=== PATIENT | male | born 2000 | race Caucasian/White ===

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

== ENCOUNTER 2019-02-10 15:33 | Emergency (ER) | payer OTHER ==
[~2019-02-10] VITALS: Ht 160 cm; Wt 47.6 kg
[2019-02-10 16:39] LABS: BASOPHILS ABSOLUTE AUTO 0.07 K/mm3 (0.00-0.23); BASOPHILS PERCENT AUTO 2 % (0-2); EOSINOPHILS PERCENT AUTO 11 % (0-6); Hematocrit 46.7 % (37.0-53.0); Hemoglobin 14.2 g/dL (13.5-17.5); IMMATURE GRAN ABSOLUTE AUTO 0.01 K/mm3 (0.00-0.10); IMMATURE GRAN PERCENT AUTO 0 % (0-1); LYMPHOCYTES ABSOLUTE AUTO 1.73 K/mm3 (0.84-5.20); LYMPHOCYTES PERCENT AUTO 37 % (21-46); MONOCYTES ABSOLUTE AUTO 0.19 K/mm3 (0.16-1.47); MONOCYTES PERCENT AUTO 4 % (4-13); Mean Corpuscular HGB 24.7 pg (26.0-34.0); Mean Corpuscular HGB Conc 30.4 g/dL (31.5-36.5); Mean Corpuscular Volume 81 fL (80-100); Mean Platelet Volume 10.5 fL (9.1-12.4); NEUTROPHILS PERCENT AUTO 47 % (41-73); Platelet Count 218 K/mm3 (150-400); RDW Coefficient Variation 13.9 % (11.7-14.2); RDW Standard Deviation 40.3 fL (35.1-46.3); Red Blood Cell Count 5.76 M/mm3 (4.30-5.90)
[2019-02-10 16:58] LABS: Source, Urine Clean Catch
[2019-02-10 17:09] LABS: Alanine Aminotransfer (ALT/SGP 30 U/L (12-78); Albumin, Blood 3.7 g/dL (3.4-5.0); Alk Phos 95 U/L (50-136); Anion Gap 6 mmol/L (6-16); Aspartate Aminotrans (AST/SGOT 17 U/L (12-37); Bilirubin, Total 0.4 mg/dL (0.1-1.0); Blood Urea Nitrogen 7 mg/dL (8-24); Bun/Creatinine Ratio 9.8 (12.0-20.0); CO2, Blood 27 mmol/L (21-32); Calcium, Blood 9.6 mg/dL (8.5-10.1); Chloride, Blood 108 mmol/L (98-108); Creatinine, Blood 0.72 mg/dL (0.60-1.20); Globulin, Blood 3.7 g/dL (2.2-4.0); Glomerular Filtration Rate >60 (60-); Glucose, Blood 82 mg/dL (70-99); Sodium, Blood 141 mmol/L (136-145); Total Protein, Blood 7.4 g/dL (6.4-8.2)
[2019-02-10 17:25] LABS: Bilirubin, Urine Neg (Neg); Blood, Urine Neg (Neg); Glucose Qualitative, Urine Neg (Neg); Ketones, Urine Neg (Neg); Leukocyte Esterase, Urine Neg (Neg); Nitrite, Urine Neg (Neg); Protein, Urine Neg (Neg); Specific Gravity, Urine 1.015 (1.003-1.022); Urobilinogen, Urine NORM (Normal)
[2019-02-10 17:48] LABS: Appearance, Urine Hazy (Clear); Color, Urine Yellow (P-Yellow)
[2019-02-10 17:49] LABS: Bacteria Rare /hpf; Red Blood Cells, Urine 0-2 /hpf (0-2); Squamous Epithelial Cells Few /hpf (Few); White Blood Cells, Urine 0-2 /hpf (0-5)
[2019-02-10 17:50] LABS: Amorphous Mod (0-Heavy)
[2019-02-10] MEDS ORDERED: ONDA4ODT MM (17:54)
[2019-02-10] MEDS ORDERED: Loperamide2 MG PO (17:55)
== END 2019-02-10 18:22 | disposition home or self-care (01) ==
LOC: ER 15:33
PROVIDERS: Physician Assistant
DX: K52.9 Noninfective gastroenteritis and colitis, unspecified (principal); J45.909 Unspecified asthma, uncomplicated; F32.9 Major depressive disorder, single episode, unspecified; K21.9 Gastro-esophageal reflux disease without esophagitis; F17.200 Nicotine dependence, unspecified, uncomplicated; Z88.2 Allergy status to sulfonamides; Z79.899 Other long term (current) drug therapy; Z79.52 Long term (current) use of systemic steroids; Z79.51 Long term (current) use of inhaled steroids
CPT/HCPCS: 36415; 80053; 81001; 83690; 85025; 96361; 96374; 99283-25; J2405; J7030

== ENCOUNTER 2019-05-04 16:02 | Emergency (ER) | payer OTHER ==
[~2019-05-04] VITALS: Ht 160 cm; Wt 49.9 kg
[~2019-05-04 16:02] MED LIST changes: +Loperamide2 MG PO
== END 2019-05-04 19:03 | disposition left against medical advice (07) ==
LOC: ER 16:02
DX: Z53.21 Procedure and treatment not carried out due to patient leaving prior to being seen by health care provider (principal)
CPT/HCPCS: 71046; 99283-25

== ENCOUNTER 2019-11-23 14:50 | Inpatient (IN) | payer OTHER ==
[~2019-11-23] VITALS: Ht 162.6 cm; Wt 43.9 kg
[~2019-11-23 14:50] MED LIST changes: -Loratadine10 MG PO; -OLAN5 PO; -OMEPRAZOLE MAGN20 MG PO; -SERT100 PO
[2019-11-23 16:00] LABS: BASOPHILS ABSOLUTE AUTO 0.02 K/mm3 (0.00-0.23); BASOPHILS PERCENT AUTO 0 % (0-2); EOSINOPHILS PERCENT AUTO 2 % (0-6); Hematocrit 45.7 % (37.0-53.0); Hemoglobin 14.6 g/dL (13.5-17.5); IMMATURE GRAN ABSOLUTE AUTO 0.01 K/mm3 (0.00-0.10); IMMATURE GRAN PERCENT AUTO 0 % (0-1); LYMPHOCYTES ABSOLUTE AUTO 1.33 K/mm3 (0.84-5.20); LYMPHOCYTES PERCENT AUTO 21 % (21-46); MONOCYTES ABSOLUTE AUTO 0.22 K/mm3 (0.16-1.47); MONOCYTES PERCENT AUTO 3 % (4-13); Mean Corpuscular HGB 25.9 pg (26.0-34.0); Mean Corpuscular HGB Conc 31.9 g/dL (31.5-36.5); Mean Corpuscular Volume 81 fL (80-100); NEUTROPHILS ABSOLUTE AUTO 4.82 K/mm3 (1.96-9.15); NEUTROPHILS PERCENT AUTO 74 % (41-73); RDW Coefficient Variation 13.7 % (11.7-14.2); RDW Standard Deviation 40.2 fL (35.1-46.3); Red Blood Cell Count 5.63 M/mm3 (4.30-5.90)
[2019-11-23 16:09] LABS: Mean Platelet Volume 11.4 fL (9.1-12.4); Platelet Count 100 K/mm3 (150-400)
[2019-11-23 16:21] LABS: Alanine Aminotransfer (ALT/SGP 20 U/L (12-78); Albumin, Blood 3.8 g/dL (3.4-5.0); Albumin/Globulin Ratio 1.1 (0.8-1.8); Alk Phos 75 U/L (50-136); Anion Gap 10 mmol/L (6-16); Aspartate Aminotrans (AST/SGOT 11 U/L (12-37); Bilirubin, Total 0.3 mg/dL (0.1-1.0); Blood Urea Nitrogen 5 mg/dL (8-24); Bun/Creatinine Ratio 8.3 (12.0-20.0); CO2, Blood 21 mmol/L (21-32); Chloride, Blood 105 mmol/L (98-108); Creatinine, Blood 0.61 mg/dL (0.60-1.20); Ethanol (Alcohol), Blood, Med <3 mg/dL; Free Thyroxine 1.49 ng/dL (0.70-1.60); Globulin, Blood 3.4 g/dL (2.2-4.0); Glomerular Filtration Rate >60 (60-); Glucose, Blood 109 mg/dL (70-99); Salicylate <1.7 mg/dL (2.8-20.0); Sodium, Blood 136 mmol/L (136-145); Thyroid Stimulating Hormone 0.439 uIU/mL (0.360-4.800); Total Protein, Blood 7.2 g/dL (6.4-8.2)
[2019-11-23 16:28] LABS: Calcium, Blood 9.1 mg/dL (8.5-10.1)
[2019-11-23 16:32] LABS: Acetaminophen, Random <2.0 ug/mL (10.0-30.0)
[2019-11-23 16:33] LABS: Source, Urine Catheter
[2019-11-23 16:39] LABS: Appearance, Urine Clear (Clear); Bilirubin, Urine Neg (Neg); Blood, Urine 1+ (Neg); Color, Urine Yellow (P-Yellow); Glucose Qualitative, Urine Neg (Neg); Ketones, Urine 1+ (Neg); Leukocyte Esterase, Urine Neg (Neg); Nitrite, Urine Neg (Neg); Protein, Urine Neg (Neg); Specific Gravity, Urine 1.025 (1.003-1.022); Urobilinogen, Urine NORM (Normal)
[2019-11-23 16:48] LABS: Bacteria Rare /hpf; Red Blood Cells, Urine 0-2 /hpf (0-2); Squamous Epithelial Cells Rare /hpf (Few); White Blood Cells, Urine 0-2 /hpf (0-5)
[2019-11-23 16:59] LABS: U Amphetamine Screen Not Detected; U Cannabinoids Screen DETECTED
[2019-11-23 17:00] LABS: U Barbituate Screen Not Detected; U Benzodiazapine Screen Not Detected; U Buprenorphine Screen Not Detected; U Cocaine Screen Not Detected; U Methadone Screen Not Detected; U Methamphetamine Screen Not Detected; U Opiates Screen Not Detected; U Oxycodone Screen Not Detected; U Phencyclidine Screen Not Detected; U Propoxyphene Screen Not Detected
[2019-11-23] MEDS ORDERED: Loratadine10 MG PO (17:56)
[2019-11-23] MEDS ORDERED: OMEPRAZOLE MAGN20 MG PO (17:57)
[2019-11-23] MEDS ORDERED: VITAMIN D325 MC3 PO (17:57)
[2019-11-23] MEDS ORDERED: MONT10T PO (17:57)
[2019-11-23] MEDS ORDERED: OLANZAPINE PO (17:58)
[2019-11-23] MEDS ORDERED: SERT100 PO (17:59)
[2019-11-23] MEDS ORDERED: OLANZAPINE5 M1 PO (17:59)
[2019-11-23] MEDS ORDERED: ALBUTEROL1.25 MG/3 NEB (18:00)
[2019-11-23] MEDS ORDERED: PRAZ1 PO (18:01)
[2019-11-23] MEDS ORDERED: ANORO ELLIPTA1 EAC1 INH (18:01)
[2019-11-23] MEDS ORDERED: Melatonin5 M1 PO (18:01)
[2019-11-23] MEDS ORDERED: QVAR REDIHALE10.6 G2 INH (18:02)
[2019-11-23] MEDS ORDERED: FLUTICASONE PRO16 GM (18:03)
[2019-11-23] MEDS ORDERED: Ventolin/Prove6.7 GM INH (18:03)
[2019-11-23 18:42] LABS: PO2 Arterial 87.8 mmHg (80-100); pH Blood Arterial 7.37 (7.35-7.45)
[2019-11-23 19:41] LABS: Creatine Kinase MB 2.2 ng/mL (0.0-3.6); Creatine Kinase MB Index 2.9 (0.0-4.0)
--- NOTE | 2019-11-23 21:18 | NUR ---
ED ADMIT RECEIVED AT 2044. NON VERBAL AND NON RESPONSIVE UNTILL MOVING FROM [facility]. OPENS EYES QUICKLY THEN CLOSED. JERKED HEAD FORWARD AND CHIN TO CHEST, AND JERKED BACK. LT ARM TWISTING AND TURNS WRIST ROTATING CLENCHED HAND INWARD. MOVED TO ICU BED 14. ASPIRATION PRECAUTIONS HOB HIGH FOWLERS.MINNIE 06/04..SLUGGISH RESPONSE.FAMILIA HESS CRIME LABORATORY ANALYST AT BEDSIDE. OBSERVING. STIFFENED BILAT LEGS AND POINTING TOES MOMENTARIY. TWISTING STIFF ARMS AND QUICKLY TO POSITION. WHISPERED THE WORDS "SAFETY FIRST" TWICE.
--- NOTE | 2019-11-23 21:45 | NUR ---
CALL TO THIS RN IN ICU FROM LUANNE / MOTHER . REPORTED HAVING GONE THRU SONS BACK PACK AND FOUND THE MED CONTAINER LABELED TOPAMAX WITH CONTENTS SHE RECOGNIZED 2, 100 MG TABS OF CARBAMAZEPINE , AND 2, 100 MG TEGRETOL , BOTH PRESCRIBED THESE FOR HER. SHE ALSO RECOGNIZED 2, TABS THAT SHE SAID HER FRIEND HAS TAKEN IN THE PAST AND SHE BELIEVES THEY ARE 400MG IBUPROFEN OR MOTRIN. MOM REORTS " PT WAS VOMITING AT 0500 HE WAS LETHARGIC AND LYING ON AND OFF BED AND FLOOR. HE DID NOT SMELL LIKE ALCOHOL AND HE WAS SPEAKING IN COMPLETE SENTENSES TO HER BUT MINIMAL CONVERSING HE WAS NOT FEELING WELL AND HE HAD STAYED UP ALL NIGHT. HE DID NOT TAKE HIS MELATONIN LAST NIGHT SINCE HE WOULD NOT HAVE, WHEN HE WANTS TO STAY UP ALL NOC. SHE SAID HE TOOK ALL OF HIS OTHER EVENING MEDS. HE DID NOT GO OUT SPECIFICALLY W/ ANY FRIENDS LAST NOC, BUT HE MAY HAVE SEEN SOMEONE WHEN GOING OUT FOR A WALK A FEW TIMES THRU NOC , SINCE HE STAYED UP ALL NOC. I HEARD HIM TALK TO DOG IF HE HAD COME BACK IN THE HOUSE, LAST NOC." NOTED PHONE NUMBERS LISTED INACCURATELY ON FACE SHEET FOR MOM AND DAD SO,WILL ADJUST THIS. MOM SAYS " I NOTICED HE MUST HAVE TAKEN A SHOWER THE NEXT TIME SHE SAW HIM, BECAUSE, HE HAD HAD VOMITUS IN HAIR AND THEN HIS HAIR WAS CLEAN."...REPORTED BACK PACK DISCOVERY FROM MOM TO FAMILIA HESS PRODUCT DESIGN SPECIALIST, IMMEDIATELY AND LAB WILL BE DRAWN. A FEW THRASHING MOVEMENTS NOTED WHEN LEFT UNDISTURBED AND WHEN DRAWING BLOOD. OPEN EYES SPONTANEOUSLY W/ IRRITABLE STIMULI ,STILL SLOW TO RESPOND PUPILS 4/4. MOVES ALL EXTREMITIES . PREFERS POSITION. NOTED PUCKERING LIPS OCCASIONALLY IF STIMULATED. OPENED EYES ONCE TO VERBAL STIMULATION . NO FURTHER WORDS, NO FOLLOWING OF COMMANDS.NO SEISURE ACTIVITY NOTED , SEISURE PRECAUTIONS ESTABLISHED W/ RAIL PADS . HIGH FOWLERS AND MOVEMENT SPONTANEOUS , AIR WAY PROTECTED AND 2L NC ON, PER NOC HOME USE FOR SLEEP ONLY.
[2019-11-23 22:37] LABS: Base Excess Venous 2.8 mmol/L; Bicarbonate Venous 26.1 mmol/L (24.0-30.0); PO2 Venous 62.7 mmHg (38-42)
[2019-11-23 22:38] LABS: PCO2 Venous 46.4 mmHg (38-42); pH Blood Venous 7.39 (7.34-7.37)
--- NOTE | 2019-11-23 23:00 | NUR ---
LAB RETURNED AND FAMILIA HESS SAFETY PATROL OFFICER CORRESPONDING W/ MOM FOR NOTIFICATION AND POISON CONTROL FOR TX UPDATE AND RECOMMENDATIONS. PT CALM IN BED WHEN LEFT UNDISTURBED AND NO IRRATIC MOVEMENTS. LAB DETERMINES NO BIPAP NEEDED AT THIS TIME. RT AND FAMILIA CONCUR.
[2019-11-23 23:11] LABS: Carbamazepine 38.6 ug/mL (4.0-12.0)
--- NOTE | 2019-11-24 01:52 | NUR ---
NEURO ..WITHDRAWS ALL EXTREMITIES TO IRRITABLE STIMULI. OPENS EYES W/O FOCUSING ON SPEAKER, MOMENTARILY. SLOW PUPIL RESPONSE. 06/04. MINNIE. NO VERBAL RESPONSE OR MAON. REACHES TOWARD FACE OR O2 TUBING. SOFT WRIST RESTRAINTS. FOLLOWS COMMAND TO WEAK SQUEEZE WITH BOTH HANDS. NO VOIDING IN ATTENDS. LINENS WET WHEN TRANSFERRED FROM [facility] AT 2044. SB LOWEST RATE 48
--- NOTE | 2019-11-24 04:00 | NUR ---
NEURO CHECK.MINNIE SLOW TO RESPOND /. SAYS TO LAB " SHE SAID NO LAB DRAWS." AND POINTS TO STAFF. FOLLOWS COMMANDS TO SQUEEZE HAND , OPEN EYES AND CONJUGATE EYE MOVEMENT AND TRACKING TO FOLLOW OBJECT. QUESTIONED ABOUT NEEDING TO URINATE AND SAYS "NO" SAME W/ QUESTION ABOUT BEING COLD. NO VOID IN ATTENDS. FOLLOWS COMMAND TO CHECK STRENGTH OF LOWER EXTREMITIES. EQUALLY STRONG IS BOTH UPPER UPPER EXTREMITIES. NOTED LOWERST HR 45 SB, WHILE ASLEEP, EKG DONE QTc 418.
[2019-11-24 04:46] LABS: BASOPHILS ABSOLUTE AUTO 0.04 K/mm3 (0.00-0.23); BASOPHILS PERCENT AUTO 1 % (0-2); EOSINOPHILS ABSOLUTE AUTO 0.21 K/mm3 (0.00-0.68); EOSINOPHILS PERCENT AUTO 4 % (0-6); Hematocrit 44.3 % (37.0-53.0); Hemoglobin 13.8 g/dL (13.5-17.5); IMMATURE GRAN PERCENT AUTO 0 % (0-1); LYMPHOCYTES ABSOLUTE AUTO 2.41 K/mm3 (0.84-5.20); LYMPHOCYTES PERCENT AUTO 48 % (21-46); MONOCYTES ABSOLUTE AUTO 0.22 K/mm3 (0.16-1.47); MONOCYTES PERCENT AUTO 4 % (4-13); Mean Corpuscular HGB Conc 31.2 g/dL (31.5-36.5); Mean Corpuscular Volume 83 fL (80-100); Mean Platelet Volume 10.9 fL (9.1-12.4); NEUTROPHILS ABSOLUTE AUTO 2.18 K/mm3 (1.96-9.15); NEUTROPHILS PERCENT AUTO 43 % (41-73); Platelet Count 158 K/mm3 (150-400); RDW Coefficient Variation 14.1 % (11.7-14.2); RDW Standard Deviation 42.9 fL (35.1-46.3); Red Blood Cell Count 5.31 M/mm3 (4.30-5.90); White Blood Cell Count 5.06 K/mm3 (4.00-11.30)
[2019-11-24 05:14] LABS: Alanine Aminotransfer (ALT/SGP 19 U/L (12-78); Albumin, Blood 3.5 g/dL (3.4-5.0); Albumin/Globulin Ratio 1.1 (0.8-1.8); Alk Phos 68 U/L (50-136); Anion Gap 4 mmol/L (6-16); Aspartate Aminotrans (AST/SGOT 8 U/L (12-37); Bilirubin, Total 0.4 mg/dL (0.1-1.0); Blood Urea Nitrogen 5 mg/dL (8-24); Bun/Creatinine Ratio 6.8 (12.0-20.0); CO2, Blood 28 mmol/L (21-32); Calcium, Blood 9.2 mg/dL (8.5-10.1); Chloride, Blood 108 mmol/L (98-108); Creatinine, Blood 0.74 mg/dL (0.60-1.20); Globulin, Blood 3.1 g/dL (2.2-4.0); Glomerular Filtration Rate >60 (60-); Glucose, Blood 84 mg/dL (70-99); Sodium, Blood 140 mmol/L (136-145); Total Protein, Blood 6.6 g/dL (6.4-8.2)
[2019-11-24 05:37] LABS: Carbamazepine 28.9 ug/mL (4.0-12.0)
--- NOTE | 2019-11-24 05:51 | NUR ---
PLACED CALL TO POISON CONTROL TO REPORT CARBAMAZEPINE LEVEL DOWNTREND. AND QTc AND CMP . NEURO CHECK SAME SIMPLE FOLLOW OF COMMANDS. NO SPEAKING , AROUSED FROM SOUND SLEEP, NODING HEAD NO WHEN QUESTIONED ABOUT NEEDING TO VOID. CALM. NO PULLING AGAINST WRIST RESTRAINTS,.SAME PUPIL RESPONSE PREVIOUS NOTE. DID NOT COOPERATE W/ EYE TRACKING.BACK TO SLEEP
--- NOTE | 2019-11-24 07:17 | NUR ---
DR. SAHU AWARE PT UNABLE TO PARTICIPATE IN SUICIDE SCREENING AT THIS TIME. ORDERS FOR MODERATE SUICIDE PRECAUTIONS AND PSYCH CONSULT PLACED.
--- NOTE | 2019-11-24 07:38 | NUR ---
ASSUMED CARE: MANAGER COMMUNITY DEVELOPMENT CALLED MD TO MAKE HIM AWARE THAT PT WAS UNABLE TO PARTICIPATE IN SI QUESTIONS BUT MAY BE AN SI ATTEMPT. PT PLACED ON MODERATE RISK WITH CAMERA MONITORING. ROOM MITIGATION DONE. MONITORING STAFF AWARE TO WATCH PT. BILATERAL WRIST RESTRAINTS IN PLACE. SINUS SUZE ON TELE AT THIS TIME.
--- NOTE | 2019-11-24 08:53 | NUR ---
PT AWOKE AND SEEMED IRRITATED THAT HE WAS BEING ASKED THE SAME QUESTIONS MULTIPLE TIMES. STATES HE KNOWS HE'S IN THE HOSPITAL. DOES NOT REMEMBER TAKING PILLS OR WHAT THE INTENTION WAS. MOTHER AT BEDSIDE AND HE WAS MAD AT HER FOR GOING THROUGH HIS BAG. SHE EXPLAINED TO HIM THAT SHE WAS TRYING TO FIGURE OUT WHAT WAS WRONG. PT STILL LETHARGIC, FALLING ASLEEP DURING CONVERSATION. WRIST RESTRAINTS IN PLACE.
--- NOTE | 2019-11-24 12:03 | NUR ---
PT AWAKE BUT SLOW TO RESPOND. APPEARS LETHARGIC AND HAS TO THINK ABOUT ANSWERS. MOTHER AT BEDSIDE. OUT OF SOFT WRIST RESTRAINTS AT THIS TIME.
--- NOTE | 2019-11-24 16:04 | NUR ---
DR MELARA CAME TO SEE PT BUT PT WAS TOO LETHARGIC FOR INTERVIEW. RN NOTED THAT PT WAS RETAINING URINE WITH NO VOID THIS SHIFT. BLADDER SCAN SHOWED 450. PT ALSO BEGAN COUGHING THIS AFTERNOON AND LUNG SOUNDS WERE NOTED TO HAVE MORE WHEEZES THIS AFTERNOON THAN PRIOR ASSESSMENT. CALL TO DR ROMO WHO GAVE ORDERS FOR BLADDER SCANS AND STRAIGHT CATHS AND FOR NEB TREATMENTS NEEDED. RT AWARE. WENT TO ASSIST PT WITH VOID WHO WISHES TO TRY TO VOID ON HIS OWN PRIOR TO CATH. ASKED RN TO COME BACK IN 10 MINUTES SO HE CAN TRY TO VOID AGAIN BEFORE CATH ATTEMPTED.
--- NOTE | 2019-11-24 16:24 | NUR ---
PT REATTEMPTED TO VOID WITH NO OUTPUT. STATED HE DID NOT WANT THIS RN PLACING STRAIGHT CATH. PT STATES HE WOULD FEEL MORE COMFORTABLE WITH A MALE NURSE ATTEMTPING. FARZAD RN TO COME ATTEMPT STRAIGHT CATH. PT AGREEABLE TO THIS PLAN.
--- NOTE | 2019-11-24 18:32 | NUR ---
SHIFT SUMMARY: PT HAS BEEN ON 2L O2 MOST OF SHIFT DUE TO SLEEPING. TOO LETHARGIC TO PREFORM ASSESSMENT FOR SUICIDAL IDEATION. DR MELARA ATTEMPTED TO EVALUATE BUT TOO LETHARGIC FOR THIS WELL. PT'S PARENTS HAVE BEEN AT BEDSIDE MOST OF SHIFT. PT REQUIRED STRAIGHT CATH X1 FOR RETENTION WITH ORDERS TO REPEAT IF NEEDED. PLAN IS FOR PSYCH EVAL WHEN ABLE TO PARTICIPATE.
--- NOTE | 2019-11-24 20:12 | NUR ---
PATIENT AWKAENS TO NAME BEING CALLED, ORIENTED, BUT REFUSES TO ANSWER QUESTIONS REGARDING HOSPITALIZATION.
--- NOTE | 2019-11-24 20:50 | NUR ---
PATIENT REC'D. MEDICAL ROOM ASSIGNMENT. REPORT CALLED TO MONI KIMBLE. PATIENT TO REMAIN ON VIDEO MONITORING FOR MODERATE SUICIDE RISK.
--- NOTE | 2019-11-25 04:06 | NUR ---
GLUE SPREADER SUMMARY TRANSFER FROM ICU, ASSUMED CARE AT 2100. ALERT AND ORIENTED X4. DENIES SUICIDAL IDEATION. DENIES PAIN OR DISCOMFORT. VSS. BREATHING IS UNLABORED. AMBULATED TO BATHROOM WITH STEADY GAIT AND SBA. APPEARED TO SLEEP T/O SHIFT. BED IN LOWEST POSITION WITH CALL LIGHT IN REACH. WILL CONTINUE TO MONITOR AND REPORT TO ONCOMING RN.
[2019-11-25 05:35] LABS: Alanine Aminotransfer (ALT/SGP 17 U/L (12-78); Albumin, Blood 2.9 g/dL (3.4-5.0); Alk Phos 64 U/L (50-136); Anion Gap 4 mmol/L (6-16); Aspartate Aminotrans (AST/SGOT 12 U/L (12-37); Bilirubin, Total 0.2 mg/dL (0.1-1.0); Blood Urea Nitrogen 4 mg/dL (8-24); Bun/Creatinine Ratio 5.7 (12.0-20.0); CO2, Blood 27 mmol/L (21-32); Calcium, Blood 8.8 mg/dL (8.5-10.1); Carbamazepine 9.6 ug/mL (4.0-12.0); Chloride, Blood 109 mmol/L (98-108); Globulin, Blood 2.9 g/dL (2.2-4.0); Glomerular Filtration Rate >60 (60-); Glucose, Blood 92 mg/dL (70-99); Potassium, Blood 3.7 mmol/L (3.5-5.5); Sodium, Blood 140 mmol/L (136-145); Total Protein, Blood 5.8 g/dL (6.4-8.2)
--- NOTE | 2019-11-25 16:33 | NUR ---
PT DISCHARGED AT 1615 WITH UNCLE TO TRANSPORT. MOTHER WAS IN THE ROOM VISITING. PT AOX4 AND COOPERATIVE OF CARE. PT ABLE TO AMBULATE INDEPENDENTLY IN ROOM. PT HAS DENIED ANY SUICIDAL THOUGHTS OR PLANS REPEATEDLY TODAY. PT STATES THAT WOULD BE STUPID TO FEEL OR THINK THAT WAY. CALI MEYER WAS CONTACTED [place] WAS CONSULTED TO PT'S CASE YESTERDAY. CALI AND DR SAHU DISCUSSED PT AND FELT HE WAS GOOD TO DISCHARGE TO DAY. DR SAHU CALLED TO LET THIS BULL RIVETER KNOW PT COULD DISCHARGE WITHOUT PSYCHIATRIST VISIT PRIOR TO DISCHARGE. PT WILL FOLLOW UP WITH HIS PCP IN ONE WEEK. PT WAS ALSO EDUCATED ON KEEPING ALL MEDICATIONS SO HE CAN KEEP MEDICATIONS ORGANIZED AND NOT ACCIDENTLY TAKE WRONG MED OR TO MUCH. PT VERBALIZED UNDERSTANDING. PT HAD PAPERWORK REVIEWED AND EDUCATIONAL MATERIAL SENT WITH HIM AND PAPERS WERE SIGNED. PT OFFERED TO BE ESCORTED VIA WHEEL CHAIR TO N ENTRANCE. PT INSISTED ON WALKING DOWN WITH HIS MOTHER AND REFUSED NURSE WALKING WITH THEM.
== END 2019-11-25 16:48 | disposition home or self-care (01) | DRG 917 ==
LOC: ER 14:50 → ICUW 14:51 → MEDS 14:51 → ER 14:51 → ICUW 20:45 → MEDS 11-24 16:03 → ICUW 11-24 18:53 → MEDS 11-24 20:59 → ENPENDDIS 11-25 11:35 → MEDS 11-25 16:48
PROVIDERS: Family Medicine; Nurse Practitioner Acute Care; Physician Assistant; ADMIT Family Medicine
DX: T42.1X4A Poisoning by iminostilbenes, undetermined, initial encounter (principal); G92 Toxic encephalopathy; G47.33 Obstructive sleep apnea (adult) (pediatric); F41.9 Anxiety disorder, unspecified; F43.10 Post-traumatic stress disorder, unspecified; J45.909 Unspecified asthma, uncomplicated; K21.9 Gastro-esophageal reflux disease without esophagitis; Q98.4 Klinefelter syndrome, unspecified; F17.210 Nicotine dependence, cigarettes, uncomplicated; Z79.51 Long term (current) use of inhaled steroids; Z88.2 Allergy status to sulfonamides
CPT/HCPCS: 36415; 36600; 51701; 70450; 71045; 80053; 80156; 81001; 82550; 82553; 82803; 83605; 84146; 84439; 84443; 84484; 85025; 93005; 93010; 94760; 96374-59; 99285-25; G0378; G0480; J2310; J7030

== ENCOUNTER 2020-10-07 17:08 | Emergency (ER) | payer OTHER ==
[~2020-10-07] VITALS: Ht 162.6 cm; Wt 48.0 kg
[~2020-10-07 17:08] MED LIST changes: +ALBUTEROL1.25 MG/3 NEB; +ANORO ELLIPTA1 EAC1 INH; +FLUTICASONE PRO16 GM; +Loratadine10 MG PO; +Melatonin5 M1 PO; +OLANZAPINE PO; +OLANZAPINE5 M1 PO; +OMEPRAZOLE MAGN20 MG PO; +QVAR REDIHALE10.6 G2 INH; +SERT100 PO; +VITAMIN D325 MC3 PO; +Ventolin/Prove6.7 GM INH
== END 2020-10-07 17:51 | disposition home or self-care (01) ==
LOC: ER 17:08
DX: U07.1 COVID-19 (principal); J43.9 Emphysema, unspecified; F17.200 Nicotine dependence, unspecified, uncomplicated; Z88.2 Allergy status to sulfonamides
CPT/HCPCS: 99284

== ENCOUNTER 2021-03-01 08:16 | Emergency (ER) | payer OTHER ==
[~2021-03-01] VITALS: Ht 162.6 cm; Wt 40.8 kg
[2021-03-01] MEDS ORDERED: CEPH500 PO (09:04)
[2021-03-01] MEDS ORDERED: CLIN150 PO (10:19)
[2021-03-02] MEDS ORDERED: Cleocin HCl150 MG PO (05:36)
[2021-03-06] MEDS ORDERED: ACET325 PO (11:55)
[2021-03-06] MEDS ORDERED: AMOCLA875 PO (11:56)
== END 2021-03-01 11:10 | disposition home or self-care (01) ==
LOC: ER 08:16
DX: L03.113 Cellulitis of right upper limb (principal); F20.9 Schizophrenia, unspecified; Z88.2 Allergy status to sulfonamides; Z79.899 Other long term (current) drug therapy; J45.909 Unspecified asthma, uncomplicated
CPT/HCPCS: 36415; 73130; 96365; 96375; 99283-25; J1885

== ENCOUNTER 2023-03-01 00:19 | Observation (INO) | payer OTHER ==
[~2023-03-01] VITALS: Ht 160 cm; Wt 43.5 kg
[~2023-03-01 00:19] MED LIST changes: +ACET325 PO; +AMOCLA875 PO; +CEPH500 PO; +CLIN150 PO; +Cleocin HCl150 MG PO
[2023-03-01 00:36] LABS: PCO2 Arterial 48.2 mmHg (35-45); PO2 Arterial 70.9 mmHg (80-100); pH Blood Arterial 7.31 (7.35-7.45)
[2023-03-01 00:56] LABS: BASOPHILS ABSOLUTE AUTO 0.14 K/mm3 (0.00-0.23); BASOPHILS PERCENT AUTO 1 % (0-2); EOSINOPHILS ABSOLUTE AUTO 0.66 K/mm3 (0.00-0.68); EOSINOPHILS PERCENT AUTO 4 % (0-6); Hematocrit 46.7 % (37.0-53.0); Hemoglobin 15.3 g/dL (13.5-17.5); IMMATURE GRAN ABSOLUTE AUTO 0.06 K/mm3 (0.00-0.10); IMMATURE GRAN PERCENT AUTO 0 % (0-1); LYMPHOCYTES ABSOLUTE AUTO 4.33 K/mm3 (0.84-5.20); LYMPHOCYTES PERCENT AUTO 28 % (21-46); MONOCYTES PERCENT AUTO 5 % (4-13); Mean Corpuscular HGB Conc 32.8 g/dL (31.5-36.5); Mean Corpuscular Volume 83 fL (80-100); Mean Platelet Volume 9.8 fL (9.1-12.4); NEUTROPHILS ABSOLUTE AUTO 9.62 K/mm3 (1.96-9.15); NEUTROPHILS PERCENT AUTO 62 % (41-73); Platelet Count 350 K/mm3 (150-400); RDW Coefficient Variation 13.2 % (11.7-14.2); RDW Standard Deviation 39.8 fL (35.1-46.3); Red Blood Cell Count 5.66 M/mm3 (4.30-5.90); White Blood Cell Count 15.51 K/mm3 (4.00-11.30)
[2023-03-01 01:06] LABS: Bun/Creatinine Ratio 15.3 (12.0-20.0); Calcium, Blood 9.4 mg/dL (8.5-10.1); Creatinine, Blood 0.65 mg/dL (0.60-1.20); Potassium, Blood 3.7 mmol/L (3.5-5.5)
[2023-03-01 02:09] LABS: Influenza A, PCR NEGATIVE (NEGATIVE); Influenza B, PCR NEGATIVE (NEGATIVE); Resp Syncytial Virus, PCR NEGATIVE (NEGATIVE); SARS-Cov-2 (COVID-19) PCR, MMC NEGATIVE (NEGATIVE)
[2023-03-01 05:12] VITALS: BP 109/73
[2023-03-01 06:19] LABS: BASOPHILS ABSOLUTE AUTO 0.04 K/mm3 (0.00-0.23); BASOPHILS PERCENT AUTO 0 % (0-2); EOSINOPHILS ABSOLUTE AUTO 0.04 K/mm3 (0.00-0.68); EOSINOPHILS PERCENT AUTO 0 % (0-6); Hematocrit 46.6 % (37.0-53.0); Hemoglobin 14.7 g/dL (13.5-17.5); IMMATURE GRAN ABSOLUTE AUTO 0.06 K/mm3 (0.00-0.10); IMMATURE GRAN PERCENT AUTO 1 % (0-1); LYMPHOCYTES ABSOLUTE AUTO 0.76 K/mm3 (0.84-5.20); LYMPHOCYTES PERCENT AUTO 6 % (21-46); MONOCYTES ABSOLUTE AUTO 0.08 K/mm3 (0.16-1.47); MONOCYTES PERCENT AUTO 1 % (4-13); Mean Corpuscular HGB 26.8 pg (26.0-34.0); Mean Corpuscular HGB Conc 31.5 g/dL (31.5-36.5); Mean Corpuscular Volume 85 fL (80-100); Mean Platelet Volume 10.4 fL (9.1-12.4); NEUTROPHILS ABSOLUTE AUTO 11.69 K/mm3 (1.96-9.15); NEUTROPHILS PERCENT AUTO 92 % (41-73); Platelet Count 252 K/mm3 (150-400); RDW Coefficient Variation 13.3 % (11.7-14.2); RDW Standard Deviation 41.7 fL (35.1-46.3); Red Blood Cell Count 5.48 M/mm3 (4.30-5.90); White Blood Cell Count 12.67 K/mm3 (4.00-11.30)
[2023-03-01 06:56] LABS: Bun/Creatinine Ratio 20.3 (12.0-20.0); Calcium, Blood 9.2 mg/dL (8.5-10.1); Creatinine, Blood 0.64 mg/dL (0.60-1.20); Potassium, Blood 3.8 mmol/L (3.5-5.5)
[2023-03-01 07:32] VITALS: BP 106/59
[2023-03-01 16:19] VITALS: BP 121/64
--- NOTE | 2023-03-01 17:36 | NUR ---
SHIFT SUMMARY PATIENT ALERT AND ORIENTED. PATIENT AMBULATING INDEPENDENTLY IN THE ROOM. RESPIRATORY STATUS IMPROVED THROUGHOUT THE DAY. PATIENT STATES THAT HE WEARS OXYGEN AT HOME AT NIGHT. PATIENT DOES NOT KNOW WHAT TRIGGERED HIS ASTHMA ATTACK. MOTHER STATES THAT HE HAS NOT HAD ONE THE REQUIRED HIM TO COME TO THE HOSPITAL FOR YEARS. PATIENT LIKES TO TALK AND DISCUSS PREVIOUS EVENTS. PATIENT IS PROUD THAT HE HAS BEEN TO LONGTERM AND ABLE TO STAND UP TO OTHERS. PATIENT COOPERATIVE WITH CARE AND INTERACTIVE WITH STAFF.
[2023-03-01 21:06] VITALS: BP 114/54
[2023-03-01 21:51] VITALS: BP 108/57
--- NOTE | 2023-03-02 03:36 | NUR ---
PATIENT IS ALERT AND ORIENTED AND TALKING A LOT DURING MY INITIAL TREATMENT AND ASSESSMENT, WITH PIV LINE ON LEFT FA WITH ONGOING IV FLUIDS. NO COMPLAINTS OF PAIN NOR DIFFICULTY OF BREATHING. HE TALKS ABOUT HIS FAMILY STORIES. NOTED SOME OCCASIONAL COUGHING, WITH RESPIRATORY TEHRAPIST RENDERING TREATMENT. HAD EARLY EPISODE OF HYPOTENSION, MEDICATION WAS PUT ON HOLD. THE ONGOING IV FLUIDS WAS CONSUMED AND DISCONTINUED PER ORDER. NEEDS ATTENDED, CALL WAS ON WITHIN PATIENT'S REACH.
[2023-03-02 05:16] VITALS: BP 85/47
[2023-03-02 06:44] LABS: BASOPHILS ABSOLUTE AUTO 0.04 K/mm3 (0.00-0.23); BASOPHILS PERCENT AUTO 0 % (0-2); EOSINOPHILS ABSOLUTE AUTO 0.06 K/mm3 (0.00-0.68); EOSINOPHILS PERCENT AUTO 0 % (0-6); Hematocrit 40.3 % (37.0-53.0); Hemoglobin 12.8 g/dL (13.5-17.5); IMMATURE GRAN ABSOLUTE AUTO 0.07 K/mm3 (0.00-0.10); IMMATURE GRAN PERCENT AUTO 1 % (0-1); LYMPHOCYTES ABSOLUTE AUTO 2.87 K/mm3 (0.84-5.20); LYMPHOCYTES PERCENT AUTO 19 % (21-46); MONOCYTES ABSOLUTE AUTO 0.46 K/mm3 (0.16-1.47); MONOCYTES PERCENT AUTO 3 % (4-13); Mean Corpuscular HGB 26.7 pg (26.0-34.0); Mean Corpuscular HGB Conc 31.8 g/dL (31.5-36.5); Mean Corpuscular Volume 84 fL (80-100); Mean Platelet Volume 10.2 fL (9.1-12.4); NEUTROPHILS ABSOLUTE AUTO 11.94 K/mm3 (1.96-9.15); NEUTROPHILS PERCENT AUTO 77 % (41-73); Platelet Count 282 K/mm3 (150-400); RDW Coefficient Variation 13.4 % (11.7-14.2); RDW Standard Deviation 41.7 fL (35.1-46.3); White Blood Cell Count 15.44 K/mm3 (4.00-11.30)
[2023-03-02 07:48] VITALS: BP 107/60
[2023-03-02] MEDS ORDERED: PRED20 PO (12:46)
--- NOTE | 2023-03-02 14:30 | NUR ---
SHIFT SUMMARY AND DISCHARGE PATIENT DISCHARGED HOME. PATIENT ALERT AND INDEPENDENT IN THE ROOM. PATIENT STATES BREATHING BACK TO HIS NORMAL. PATIENT EAGER TO GO HOME. DISCHARGE INSTRUCTIONS REVIEWED WITH PATIENT. IV DC'D. RX SENT TO [facility]. PATIENT TRANSPORTED OUT VIA WHEELCHAIR.
== END 2023-03-02 14:29 | disposition home or self-care (01) ==
LOC: ER 00:19 → MEDS 03:13 → ERHOLD 03:13 → MEDS 05:06
PROVIDERS: Family Medicine; Student in an Organized Health Care Education/Training Program; ADMIT Internal Medicine
DX: J96.21 Acute and chronic respiratory failure with hypoxia (principal); F41.9 Anxiety disorder, unspecified; J45.901 Unspecified asthma with (acute) exacerbation; F43.12 Post-traumatic stress disorder, chronic; F32.9 Major depressive disorder, single episode, unspecified; Q98.4 Klinefelter syndrome, unspecified; F20.9 Schizophrenia, unspecified; F17.210 Nicotine dependence, cigarettes, uncomplicated; Z88.2 Allergy status to sulfonamides
CPT/HCPCS: 0241U; 36415; 36600; 71045; 80048; 82803; 85025; 93005; 93010; 94640; 94644; 94645; 94664; 94760; 96365; 96372; 96372-59; 96375; 96376; 99285-25; A9270; G0008; G0378; J1650; J2405; J2930; J3105; J3475; J7030; Q2036

== ENCOUNTER 2023-12-29 22:10 | Emergency (ER) | payer OTHER ==
[~2023-12-29] VITALS: Ht 157.5 cm; Wt 45.4 kg
== END 2023-12-30 02:00 | disposition home or self-care (01) ==
LOC: ER 22:10
DX: F29 Unspecified psychosis not due to a substance or known physiological condition (principal); J45.909 Unspecified asthma, uncomplicated; F43.10 Post-traumatic stress disorder, unspecified; F17.200 Nicotine dependence, unspecified, uncomplicated; Z79.52 Long term (current) use of systemic steroids; Z79.899 Other long term (current) drug therapy; Z88.2 Allergy status to sulfonamides
CPT/HCPCS: 99282

== ENCOUNTER 2023-12-31 05:26 | Emergency (ER) | payer OTHER ==
[~2023-12-31] VITALS: Ht 162.6 cm; Wt 47.2 kg
[2023-12-31 05:29] VITALS: BP 128/91
== END 2023-12-31 13:17 | disposition left against medical advice (07) ==
LOC: ER 05:26
DX: F20.0 Paranoid schizophrenia (principal); F43.10 Post-traumatic stress disorder, unspecified; J45.909 Unspecified asthma, uncomplicated; F17.200 Nicotine dependence, unspecified, uncomplicated; Z79.51 Long term (current) use of inhaled steroids; Z79.52 Long term (current) use of systemic steroids; Z79.899 Other long term (current) drug therapy; Z88.2 Allergy status to sulfonamides
CPT/HCPCS: 99283-25

== ENCOUNTER 2024-02-23 | Emergency (ER) | payer OTHER ==
[~2024-02-23] VITALS: Ht 162.6 cm; Wt 49.4 kg
[2024-02-23 00:04] VITALS: BP 132/76
[2024-02-23] MEDS ORDERED: Ibuprofen 400 MG Tab PO ONE ×2 (00:20→00:30)
== END 2024-02-23 00:36 | disposition home or self-care (01) ==
LOC: ER
DX: S60.221A Contusion of right hand, initial encounter (principal); S20.319A Abrasion of unspecified front wall of thorax, initial encounter; F43.10 Post-traumatic stress disorder, unspecified; J45.909 Unspecified asthma, uncomplicated; F17.200 Nicotine dependence, unspecified, uncomplicated; Y04.8XXA Assault by other bodily force, initial encounter; Z79.51 Long term (current) use of inhaled steroids; Z88.2 Allergy status to sulfonamides
CPT/HCPCS: 73130; 99283-25; A9270